=== PATIENT | male | born 1960 | race Caucasian/White ===

== ENCOUNTER 2017-10-31 03:01 | Emergency (ER) | payer MEDICAID, OTHER ==
[~2017-10-31] VITALS: Ht 185.4 cm; Wt 102.1 kg
[2017-10-31] VITALS (9 sets, daily range): BP systolic 103–119; BP diastolic 56–79
[~2017-10-31 03:01] MED LIST: AZITHROMYCIN250 MG ORAL
--- NOTE | 2017-10-31 03:39 | Emergency Room Report ---
History of Present Illness General Chief Complaint: Generalized Weakness Source: Patient Present Illness HPI 49-year-old male, history of HIV on treatment, undetectable viral load, presenting with 4 days of diarrhea. Patient states that he has had multiple episodes of watery nonbloody diarrhea per day, more than 10. Has had nausea but states that he has nothing to vomit because it he has not been able to drink anything. States that on Friday he ate bread that had molds in it. Denies any recent antibiotic use. Denies any recent travel. no abd pain Allergies: Coded Allergies: No Known Allergies (Unverified , 10/14/13) Patient History Past Medical History: see triage record Past Surgical History: none Pertinent Family History: none Reviewed Nursing Documentation: PMH: Agreed, PSxH: Agreed Nursing Documentation-PMH Hx Hypertension: Yes Hx Neurological Problems: Yes - hiv Review of Systems All Other Systems: negative except mentioned in HPI Physical Exam Vital Signs Date Time Temp Pulse Resp B/P (MAP) Pulse Ox O2 Delivery O2 Flow Rate FiO2 10/31/17 03:10 98.9 120 18 115/76 97 Room Air 99.0 Sp02 EP Interpretation: reviewed, normal General Appearance: alert, GCS 15, non-toxic, moderate distress Head: normocephalic, atraumatic Eyes: bilateral eye normal inspection, bilateral eye PERRL, bilateral eye EOMI ENT: dry mucus membranes Neck: normal inspection, full range of motion, supple Respiratory: normal inspection, lungs clear, normal breath sounds, no respiratory distress, no retraction, no wheezing, speaking full sentences, chest symmetrical Cardiovascular #1: normal inspection, regular rate, rhythm, normal capillary refill Cardiovascular #2: 2+ radial (R), 2+ radial (L) Gastrointestinal: normal inspection, non tender, soft, non-distended, no guarding Musculoskeletal: normal inspection, back normal, normal range of motion, non- tender Neurologic: normal inspection, alert, oriented x3, responsive, motor strength/ tone normal, sensory intact, normal gait, speech normal Psychiatric: normal inspection, judgement/insight normal, memory normal Skin: normal inspection, normal color, no rash, warm/dry, well hydrated, normal turgor Medical Decision Making Diagnostic Impression: Primary Impression: Dehydration Additional Impressions: Diarrhea Renal failure Hyponatremia ER Course 57-year-old male with intractable diarrhea DDX: Diarrhea likely secondary to infectious cause given the duration of time No risk factors for C.diff Patient is with nontender abdomen Dehydration, electrolyte disturbance Plan: Obtain labs, ua, ciprofloxacin, IV fluids, Zofran ER course: Patient has been monitored during ED stay, HD stable Given fluids and Zofran Pt with ARF -- pt denies any known hx of renal failure. Disposition: Pt xferred to outside hospital 10/[address] Arita who has accepted patient Please note that this Emergency Department Report was dictated using [employer] technology software, occasionally this can lead to erroneous entry secondary to interpretation by the dictation equipment. EKG Diagnostic Results EP Interpretation: Yes Rate: tachy Rhythm: NSR ST Segments: No acute changes ASA given to patient: No Laboratory Tests Test 10/31/17 03:25 10/31/17 03:30 White Blood Count 15.8 K/UL (4.8-10.8) H Red Blood Count 4.14 M/UL (4.70-6.10) L Hemoglobin 13.3 G/DL (14.2-18.0) L Hematocrit 38.0 % (42.0-52.0) L Mean Corpuscular Volume 92 FL (80-99) Mean Corpuscular Hemoglobin 32.1 PG (27.0-31.0) H Mean Corpuscular Hemoglobin Concent 34.9 G/DL (32.0-36.0) Red Cell Distribution Width 11.8 % (11.6-14.8) Platelet Count 141 K/UL (150-450) L Mean Platelet Volume 8.0 FL (6.5-10.1) Neutrophils (%) (Auto) 84.3 % (45.0-75.0) H Lymphocytes (%) (Auto) 5.7 % (20.0-45.0) L Monocytes (%) (Auto) 9.6 % (1.0-10.0) Eosinophils (%) (Auto) 0.0 % (0.0-3.0) Basophils (%) (Auto) 0.3 % (0.0-2.0) Sodium Level 129 MMOL/L (136-145) L Potassium Level 3.5 MMOL/L (3.5-5.1) Chloride Level 90 MMOL/L (98-107) L Carbon Dioxide Level 20 MMOL/L (21-32) L Anion Gap 19 mmol/L (5-15) H Blood Urea Nitrogen 95 mg/dL (7-18) H Creatinine 11.3 MG/DL (0.55-1.30) H Estimate Glomerular Filtration Rate 4.7 mL/min (>60) Glucose Level 123 MG/DL (74-106) H Calcium Level 8.3 MG/DL (8.5-10.1) L Total Bilirubin 0.4 MG/DL (0.2-1.0) Aspartate Amino Transferase (AST) 40 U/L (15-37) H Alanine Aminotransferase (ALT) 56 U/L (12-78) Alkaline Phosphatase 97 U/L (46-116) Creatine Kinase MB 2.7 NG/ML (0.0-3.6) Total Protein 8.7 G/DL (6.4-8.2) H Albumin 2.8 G/DL (3.4-5.0) L Globulin 5.9 g/dL Albumin/Globulin Ratio 0.5 (1.0-2.7) L Lactic Acid Level 0.30 mmol/L (0.66-2.22) L Last Vital Signs Date Time Temp Pulse Resp B/P (MAP) Pulse Ox O2 Delivery O2 Flow Rate FiO2 10/31/17 03:10 98.9 120 18 115/76 97 Room Air 99.0 Disposition: [facility] HOS[facility] Condition: Serious Cal Mayberry M.D. Oct 31, 2017 03:39
[2017-10-31 03:53] LABS: BASOPHILS % (AUTO) 0.3 % (0.0-2.0); HEMOGLOBIN 13.3 G/DL (14.2-18.0); LYMPHOCYTES % (AUTO) 5.7 % (20.0-45.0); MEAN CORPUSCULAR VOLUME 92 FL (80-99); MONOCYTES % (AUTO) 9.6 % (1.0-10.0); NEUTROPHILS % (AUTO) 84.3 % (45.0-75.0); PLATELET COUNT 141 K/UL (150-450); RED BLOOD COUNT 4.14 M/UL (4.70-6.10); RED CELL DISTRIBUTION WIDTH 11.8 % (11.6-14.8); WHITE BLOOD COUNT 15.8 K/UL (4.8-10.8)
[2017-10-31 04:05] LABS: ANION GAP 19 mmol/L (5-15); BLOOD UREA NITROGEN 95 mg/dL (7-18); CALCIUM 8.3 MG/DL (8.5-10.1); CARBON DIOXIDE 20 MMOL/L (21-32); CHLORIDE 90 MMOL/L (98-107); CREATININE 11.3 MG/DL (0.55-1.30); POTASSIUM 3.5 MMOL/L (3.5-5.1); SODIUM 129 MMOL/L (136-145)
[2017-10-31 04:20] LABS: ALANINE AMINOTRANSFERASE 56 U/L (12-78); ALBUMIN 2.8 G/DL (3.4-5.0); ALBUMIN/GLOBULIN RATIO 0.5 (1.0-2.7); ALKALINE PHOSPHATASE 97 U/L (46-116); ASPARTATE AMINO TRANSFERASE 40 U/L (15-37); BILIRUBIN,TOTAL 0.4 MG/DL (0.2-1.0); CKMB 2.7 NG/ML (0.0-3.6)
[2017-10-31] MEDS ORDERED: BUPROPION XL300 MG ORAL (05:07)
[2017-10-31] MEDS ORDERED: GENVOYA TABLET1 EACH PO (05:07)
[2017-10-31] MEDS ORDERED: BENAZEPRIL HCL10 MG ORAL (05:07)
--- NOTE | 2017-10-31 10:45 | Diagnostic Imaging Report ---
Indication: Dyspnea Comparison: None A single view chest radiograph was obtained. Findings: Cardiomediastinal appearance is within normal limits for age. Pulmonary vascularity is appropriate. The diaphragmatic contour is smooth and costophrenic angles are sharp. No pleural effusions are identified. The bones are unremarkable. Impression: No acute findings
--- NOTE | 2017-11-02 16:04 | Cardiology Report ---
APPROVED REPORT EKG Measurement Heart [id number] MD [id number] Normal sinus rhythm Cannot rule out Anterior infarct, age undetermined Abnormal ECG
== END 2017-10-31 10:24 | disposition short-term general hospital (02) ==
LOC: EMR 03:30
DX: E86.0 Dehydration (principal); R19.7 Diarrhea, unspecified; N19 Unspecified kidney failure; I10 Essential (primary) hypertension; E87.1 Hypo-osmolality and hyponatremia; R53.1 Weakness; B20 Human immunodeficiency virus [HIV] disease
CPT/HCPCS: 36415; 71045; 80053; 82553; 83605; 85025; 87040; 93005; 96361; 96374; 99285; J0744; J2405